=== PATIENT | male | born 1980 | race Caucasian/White ===

== ENCOUNTER 2021-12-08 02:47 | Inpatient (IN) ==
[2021-12-08] MEDS ORDERED: *HR* FentaNYL (PF) 100 MCG/2 ML VIAL ONE (03:11)
[2021-12-08] MEDS ORDERED: *HR* Heparin 10,000 UNIT/10 ML VIAL ONE (03:12)
[2021-12-08] MEDS ORDERED: Heparin 1,000 UNITS/500 mL 500 ML ONE (03:12)
[2021-12-08] MEDS ORDERED: 0.9 % Sodium Chloride 1,000 ML ONE (03:12)
[2021-12-08] MEDS ORDERED: *HR* Midazolam HCl 2 MG/2 ML VIAL ONE (03:12)
[2021-12-08] MEDS ORDERED: ISOVUE-370 200 ML INFUS..BTL ONE ×2 (03:12→03:59)
[2021-12-08] MEDS ORDERED: Nitroglycerin 1,000 MCG/5 ML VIAL IV ONE (03:13)
[2021-12-08] MEDS ORDERED: Perflutren Lipid Microsphere 1.3 ML in 0.9 % Sodium Chloride 8.7 ML IVP PRN (04:40)
[2021-12-08] MEDS: 0.9 % Sodium Chloride 1,000 ML IVC SCH ×2 (05:00→15:40)
[2021-12-08] MEDS ORDERED: *HR* OxyCODONE Immed Rel 5 MG TABLET PO ONE (05:50)
[2021-12-08 07:43] LABS: Basophils # 0.1 K/mcL (0.0-0.2); Basophils % 0.7 %; Eosinophils # 0.1 K/mcL (0.0-0.6); Eosinophils % 0.6 %; Hematocrit 42.2 % (37.5-50.1); Hemoglobin 14.1 g/dL (12.9-16.9); Immature Granulocytes % 0.7 % (0-4); Lymphocytes # 2.7 K/mcL (0.6-4.6); Lymphocytes % 15.8 %; Mean Corpuscular HGB Conc 33.4 g/dL (31.6-35.5); Mean Corpuscular Hemoglobin 31.5 pg (28.0-33.3); Mean Corpuscular Volume 94.2 fL (83.0-100.0); Mean Platelet Volume 11.1 fL (9.4-12.4); Monocytes # 1.4 K/mcL (0.0-1.3); Monocytes % 8.1 %; Neutrophils # 12.5 K/mcL (1.6-8.9); Platelet Count 256 K/mcL (140-400); Red Blood Count 4.48 M/mcL (4.19-5.50); Segmented Neutrophils % 74.1 %; White Blood Count 16.9 K/mcL (4.3-11.1)
[2021-12-08 07:53] LABS: BUN/Creatinine Ratio 19 (6-26); Blood Urea Nitrogen 18 mg/dL (6-20); Calcium 8.1 mg/dL (8.6-10.3); Carbon Dioxide 22 mEq/L (23-29); Chloride 103 mEq/L (98-107); Glucose 114 mg/dL (70-105); Osmolality,Calculated 279 (280-300); Potassium 3.8 mEq/L (3.5-5.1); Sodium 133 mEq/L (136-145); eGFR For African Americans > 60 (> 60); eGFR For Non-African Americans > 60 (> 60)
[2021-12-08] MEDS ORDERED: *HR* Ticagrelor 90 MG TABLET PO SCH ×3 (09:00→21:00)
[2021-12-08] MEDS: Aspirin 81 MG TAB.CHEW PO SCH (09:00)
[2021-12-08 09:51] LABS: Amphetamine Screen,Urine Negative ng/mL (Cutoff=1000); Barbiturate Screen,Urine Negative ng/mL (Cutoff=200); Benzodiazepines Screen,Urine Positive ng/mL (Cutoff=200); Cannabinoid Screen,Urine Positive ng/mL (Cutoff = 50); Cocaine Screen,Urine Positive ng/mL (Cutoff= 300); Opiate Screen,Urine Negative ng/mL (Cutoff=300); Phencyclidine Screen,Urine Negative ng/mL (Cutoff=25)
[2021-12-08] MEDS ORDERED: Nitroglycerin 0.4 MG TAB.SUBL SL PRN (12:07)
[2021-12-08] MEDS: lisinopriL 5 MG TABLET PO SCH (13:16)
[2021-12-09] MEDS: 0.9 % Sodium Chloride 1,000 ML IVC SCH (01:28)
[2021-12-09] MEDS: lisinopriL 5 MG TABLET PO SCH (09:13)
[2021-12-09] MEDS: Aspirin 81 MG TAB.CHEW PO SCH (09:13)
[2021-12-09] MEDS ORDERED: Perflutren Lipid Microsphere 1.3 ML in 0.9 % Sodium Chloride 8.7 ML IVP PRN (09:45)
[2021-12-09] MEDS ORDERED: Nitroglycerin 0.4 MG TAB.SUBL SL PRN (09:45)
[2021-12-09 10:26] LABS: Basophils # 0.1 K/mcL (0.0-0.2); Basophils % 0.7 %; Eosinophils # 0.2 K/mcL (0.0-0.6); Eosinophils % 2.2 %; Hematocrit 45.7 % (37.5-50.1); Hemoglobin 15.3 g/dL (12.9-16.9); Immature Granulocytes % 0.4 % (0-4); Lymphocytes # 1.9 K/mcL (0.6-4.6); Lymphocytes % 19.5 %; Mean Corpuscular HGB Conc 33.5 g/dL (31.6-35.5); Mean Corpuscular Hemoglobin 31.4 pg (28.0-33.3); Mean Corpuscular Volume 93.8 fL (83.0-100.0); Mean Platelet Volume 11.3 fL (9.4-12.4); Monocytes # 1.1 K/mcL (0.0-1.3); Monocytes % 11.1 %; Neutrophils # 6.5 K/mcL (1.6-8.9); Platelet Count 257 K/mcL (140-400); Red Blood Count 4.87 M/mcL (4.19-5.50); Red Cell Distribution Width 12.9 % (11.5-14.5); Segmented Neutrophils % 66.1 %; White Blood Count 9.9 K/mcL (4.3-11.1)
[2021-12-09 10:43] LABS: BUN/Creatinine Ratio 12 (6-26); Blood Urea Nitrogen 10 mg/dL (6-20); Calcium 8.7 mg/dL (8.6-10.3); Carbon Dioxide 23 mEq/L (23-29); Chloride 105 mEq/L (98-107); Glucose 89 mg/dL (70-105); Osmolality,Calculated 283 (280-300); Potassium 3.8 mEq/L (3.5-5.1); Sodium 137 mEq/L (136-145); eGFR For African Americans > 60 (> 60); eGFR For Non-African Americans > 60 (> 60)
[2021-12-09 10:46] LABS: Troponin I 8.63 ng/mL (< 0.04)
[2021-12-09] MEDS: Magnesium Oxide 400 MG TABLET PO SCH ×2 (11:34→20:05)
[2021-12-09] MEDS: carvediloL 6.25 MG TABLET PO SCH (16:59)
[2021-12-10 06:03] LABS: Basophils # 0.1 K/mcL (0.0-0.2); Basophils % 1.1 %; Eosinophils # 0.4 K/mcL (0.0-0.6); Eosinophils % 4.6 %; Hematocrit 47.5 % (37.5-50.1); Hemoglobin 15.5 g/dL (12.9-16.9); Immature Granulocytes % 0.8 % (0-4); Lymphocytes # 2.9 K/mcL (0.6-4.6); Lymphocytes % 31.2 %; Mean Corpuscular HGB Conc 32.6 g/dL (31.6-35.5); Mean Corpuscular Hemoglobin 30.6 pg (28.0-33.3); Mean Corpuscular Volume 93.7 fL (83.0-100.0); Mean Platelet Volume 11.3 fL (9.4-12.4); Monocytes # 1.1 K/mcL (0.0-1.3); Monocytes % 11.5 %; Neutrophils # 4.7 K/mcL (1.6-8.9); Platelet Count 253 K/mcL (140-400); Red Blood Count 5.07 M/mcL (4.19-5.50); Red Cell Distribution Width 12.8 % (11.5-14.5); Segmented Neutrophils % 50.8 %; White Blood Count 9.3 K/mcL (4.3-11.1)
[2021-12-10 06:31] LABS: Alanine Aminotransferase 20 Units/L (7-52); Albumin 3.9 g/dL (3.5-5.7); Albumin/Globulin Ratio 1.5 (1.1-2.2); Alkaline Phosphatase 85 Units/L (34-104); Aspartate Amino Transferase 26 Units/L (13-39); BUN/Creatinine Ratio 20 (6-26); Bilirubin,Total 0.4 mg/dL (0.3-1.0); Blood Urea Nitrogen 19 mg/dL (6-20); Calcium 8.8 mg/dL (8.6-10.3); Carbon Dioxide 24 mEq/L (23-29); Chloride 104 mEq/L (98-107); Chol/HDL Ratio 4.2 (0-4.9); Cholesterol 169 mg/dL (< 200); Globulin 2.6 g/dL (2.4-3.5); Glucose 112 mg/dL (70-105); HDL Cholesterol 40 mg/dL (40-59); LDL Cholesterol,Calculated 109 mg/dL (< 100); Osmolality,Calculated 285 (280-300); Potassium 4.2 mEq/L (3.5-5.1); Sodium 136 mEq/L (136-145); Total Protein 6.5 g/dL (6.4-8.9); Triglycerides 101 mg/dL (< 150); eGFR For African Americans > 60 (> 60); eGFR For Non-African Americans > 60 (> 60)
[2021-12-10 06:57] VITALS: BP 105/61; PULSE 57; TEMP 97.9; O2SAT 97
[2021-12-10] MEDS: carvediloL 6.25 MG TABLET PO SCH (08:26)
[2021-12-10] MEDS ORDERED: Aspirin 81 MG TAB.CHEW PO SCH (09:00)
[2021-12-10] MEDS ORDERED: lisinopriL 5 MG TABLET PO SCH ×2 (09:00)
[2021-12-10] MEDS ORDERED: *HR* Enoxaparin 40 MG/0.4 ML SYRINGE SQ SCH ×2 (10:00)
== END 2021-12-10 10:32 | disposition home or self-care (01) | DRG 174 ==
LOC: ICNU 04:38 → 2NENU 12-09 13:34
PROVIDERS: ADMIT Internal Medicine Cardiovascular Disease; ATTEND Internal Medicine Cardiovascular Disease